=== PATIENT | female | born 1975 | race Caucasian/White ===

== ENCOUNTER 2017-06-30 20:27 | Emergency (ER) | payer BC ==
[2017-06-30] MEDS ORDERED: Ondansetron 4 MG Tab.DIS PO ONE (21:31)
[2017-06-30] MEDS ORDERED: Meclizine 12.5 MG Tab PO ONE (21:31)
[2017-06-30] MEDS ORDERED: Diazepam 5 MG Tab PO ONE (21:32)
--- NOTE | 2017-06-30 21:50 | EDM.PDOC ---
ED HPI GENERAL MEDICAL PROBLEM - General Chief Complaint: Neurological Problem Stated Complaint: VOMITING/DIZZY Time Seen by Provider: 06/30/17 20:38 Source of Information: Reports: Patient History Limitations: Reports: No Limitations - History of Present Illness INITIAL COMMENTS - FREE TEXT/NARRATIVE: 41 y/o F with dizziness. Acute onset while she was baking pies this evening. She felt lightheaded, dizzy with room spinning sensation, and nauseated. She thought it was from the heat in the kitchen. She finished what she was doing then took a cool bath. This made it worse - states the sensation or sight of the water moving made her more nauseated. She had several episodes of vomiting at home. Now still feels somewhat dizzy and nauseated. No clear provoking factor. Had recent upper respiratory infection and is currently on amoxacillin for otitis media. No fever. No headache. No head injury. No focal weakness or other neurological complaint. No tinnitus. No hx similar symptoms previously. Lower Back Pain Score (Numeric/FACES): 7 - Related Data Allergies Allergy/AdvReac Type Severity Reaction Status Date / Time No Known Allergies Allergy Verified 04/06/14 09:04 Home Meds: Home Meds Amoxicillin/Potassium Clav [Amox-Clav 875-125 mg Tablet] 1 tab PO Q12H 06/30/17 [History] Diazepam [Valium] 5 mg PO BID PRN #12 tablet 06/30/17 [Rx] Meclizine [Antivert] 25 mg PO Q6H PRN #28 tablet 06/30/17 [Rx] Omeprazole 20 mg PO DAILY 06/30/17 [History] Ondansetron [Zofran ODT] 4 mg PO Q4H PRN #24 tab.dis 06/30/17 [Rx] Past Medical History HEENT History: Reports: Other (See Below) Other HEENT History: bilateral ear infection and is on antibiotics now Gastrointestinal History: Reports: GERD, Hiatal Hernia - Past Surgical History HEENT Surgical History: Reports: Oral Surgery, Tonsillectomy GI Surgical History: Reports: Cholecystectomy Female Surgical History: Reports: Section, Tubal Ligation Other Female Surgeries/Procedures: x 3 Social & Family History - Tobacco Use Smoking Status *Q: Never Smoker Years of Tobacco use: 10 Used Tobacco, but Quit: No Second Hand Smoke Exposure: No - Caffeine Use Caffeine Use: Reports: Soda, Tea - Alcohol Use Days Per Week of Alcohol Use: 2 Number of Drinks Per Day: 2 Total Drinks Per Week: 4 - Recreational Drug Use Recreational Drug Use: No Drug Use in Last 12 Months: No ED ROS GENERAL - Review of Systems Review Of Systems: See Below Constitutional: Reports: Malaise. Denies: Fever HEENT: Reports: Ear Pain, Vertigo Respiratory: Denies: Cough Cardiovascular: Reports: Lightheadedness. Denies: Syncope Endocrine: Reports: No Symptoms GI/Abdominal: Reports: Nausea, Vomiting : Reports: No Symptoms Musculoskeletal: Reports: No Symptoms Skin: Reports: No Symptoms Neurological: Reports: Dizziness ED EXAM, NEURO - Physical Exam Exam: See Below Exam Limited By: No Limitations General Appearance: Alert, Moderate Distress Eye Exam: Bilateral Eye: EOMI, Nystagmus (horizontal, present with left gaze), PERRL Ears: Normal External Exam, Other (L TM is erythematous. R TM normal. ) Throat/Mouth: Normal Inspection, Normal Oropharynx, Normal Voice, No Airway Compromise Head Exam: Atraumatic, Normocephalic Neck: Normal Inspection, Supple Respiratory/Chest: No Respiratory Distress, Lungs Clear, Normal Breath Sounds Cardiovascular: Normal Peripheral Pulses, Regular Rate, Rhythm, No Murmur GI/Abdominal: Soft, Non-Tender, No Distention. No: Rebound Neurological: Alert, Normal Mood/Affect, Normal Dorsiflexion, CN II-XII Intact, Normal Plantar Flexion, No Motor/Sensory Deficits, Oriented x 3 Back Exam: Normal Inspection Extremities: Normal Inspection Psychiatric: Normal Affect, Normal Mood Skin Exam: Warm, Dry, Intact, Normal Color, No Rash Course - Vital Signs Last Recorded V/S: Last Vital Signs Temp 35.8 C 06/30/17 20:39 Pulse 85 06/30/17 20:39 Resp 20 06/30/17 20:39 BP 129/88 06/30/17 20:39 Pulse Ox 100 06/30/17 20:39 - Orders/Labs/Meds Meds: Medications Discontinued Medications Generic Name Dose Route Start Last Admin Trade Name Freq PRN Reason Stop Dose Admin Diazepam 5 mg 06/30/17 21:32 06/30/17 21:42 Valium. PO 06/30/17 21:33 5 mg ONETIME ONE Administration Meclizine HCl 25 mg 06/30/17 21:31 06/30/17 21:41 Antivert PO 06/30/17 21:32 25 mg ONETIME ONE Administration Ondansetron HCl 8 mg 06/30/17 21:31 06/30/17 21:41 Zofran Odt PO 06/30/17 21:32 8 mg ONETIME ONE Administration - Re-Assessments/Exams Free Text/Narrative Re-Assessment/Exam: 06/30/17 21:49 Suspect acute labyrinthitis given recent URI and current OM. Given zofran/ meclizine/diazepam in the ED. Will reeval after meds. 06/30/17 22:23 Feeling much better after meds. Will discharge with rx. for zofran/meclizine/ diazepam. PCP f/u, return precautions. Departure - Departure Time of Disposition: 22:23 Disposition: Home, Self-Care 01 Clinical Impression: Vertigo - Discharge Information Prescriptions: Diazepam [Valium] 5 mg PO BID PRN #12 tablet PRN Reason: severe dizziness Meclizine [Antivert] 25 mg PO Q6H PRN #28 tablet PRN Reason: Dizziness Ondansetron [Zofran ODT] 4 mg PO Q4H PRN #24 tab.dis PRN Reason: Nausea Referrals: Sharmila Grijalva PA [Primary Care Provider] - Forms: ED Department Discharge Additional Instructions: 1. Take ondansetron as needed for nausea 2. Take meclizine as needed for dizziness 3. Take diazepam as needed for severe nausea 4. Return to the ED if worse 5. Otherwise follow up with your primary doctor as needed
== END 2017-06-30 22:28 | disposition home or self-care (01) ==
LOC: JD.ED 20:27
DX: R42 Dizziness and giddiness (principal); K21.9 Gastro-esophageal reflux disease without esophagitis
CPT/HCPCS: 99284; A9270; 99283

== ENCOUNTER 2018-02-12 06:35 | Inpatient (IN) | payer BC ==
[~2018-02-12 06:35] MED LIST: Lactated Ringers 1,000 ML IV SCH; Lidocaine 1%/Sod Bicarbonate in NS 8.4% 1 ML Syringe IDERM PRN; Sodium Chloride 0.9% 10 ML Syringe FLUSH PRN
[2018-02-12] MEDS ORDERED: Dexamethasone 4 MG/ML 5 ML MDV ONE (06:55)
[2018-02-12] MEDS ORDERED: Ketorolac 30 MG/ML SDV ONE (06:55)
[2018-02-12] MEDS ORDERED: HYDROmorphone 0.5 MG/0.5 ML Syringe ONE ×3 (06:55→08:49)
[2018-02-12] MEDS ORDERED: Lactated Ringers 1,000 ML ONE ×2 (06:55→10:55)
[2018-02-12] MEDS ORDERED: Ondansetron 4 MG/2 ML SDV ONE (06:55)
[2018-02-12] MEDS ORDERED: Rocuronium 50 MG/5 ML Vial ONE (06:55)
[2018-02-12] MEDS ORDERED: fentaNYL 250 MCG/5 ML SDV ONE (06:56)
[2018-02-12] MEDS ORDERED: Propofol 200 MG/20 ML SDV ONE (06:56)
[2018-02-12] MEDS ORDERED: Midazolam 1 MG/ML 2 ML SDV ONE (06:56)
[2018-02-12] MEDS ORDERED: Bupivacaine 0.5% 30 ML SDV ONE (07:13)
[2018-02-12] MEDS ORDERED: Sodium Chloride 0.9% 50 ML SDV ONE (07:13)
[2018-02-12] MEDS ORDERED: Lidocaine 1% with EPINEPHrine 1:100,000 20 ML MDV ONE (07:13)
--- NOTE | 2018-02-12 07:15 | PCM.PREANE ---
Preanesthetic Assessment - Anesthesia/Transfusion/Family Hx Anesthesia History: Prior Anesthesia Without Reaction Transfusion History: Prior Transfusion Without Reaction - Review of Systems General: No Symptoms Pulmonary: No Symptoms Cardiovascular: No Symptoms Gastrointestinal: Other (hiatal hernia, GERD, takes daily med) Neurological: No Symptoms Other: Reports: None - Physical Assessment NPO Status Date: 02/11/18 NPO Status Time: 21:00 Pulse: 83 O2 Sat by Pulse Oximetry: 97 Respiratory Rate: 16 Blood Pressure: 121/77 Weight: 72.5 kg ASA Class: 2 Mental Status: Alert & Oriented x3 Airway Class: Mallampati = 3 Dentition: Reports: Normal Dentition Thyro-Mental Finger Breadths: 3 Mouth Opening Finger Breadths: 3 ROM/Head Extension: Full Lungs: Clear to Auscultation, Normal Respiratory Effort Cardiovascular: Regular Rate - Allergies Allergies/Adverse Reactions: Allergies Allergy/AdvReac Type Severity Reaction Status Date / Time No Known Allergies Allergy Verified 02/11/18 13:16 - Blood Blood Available: No Product(s) Available: None - Anesthesia Plan Pre-Op Medication Ordered: None - Acknowledgements Anesthesia Type Planned: General Anesthesia Pt an Appropriate Candidate for the Planned Anesthesia: Yes Alternatives and Risks of Anesthesia Discussed w Pt/Guardian: Yes Pt/Guardian Understands and Agrees with Anesthesia Plan: Yes PreAnesthesia Questionnaire HEENT History: Reports: Allergic Rhinitis, Otitis Media, Other (See Below) Other HEENT History: sore throat, allergic conjunctivits, wears glasses, contacts Cardiovascular History: Reports: None Respiratory History: Reports: None Gastrointestinal History: Reports: GERD, Hiatal Hernia 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: , Other (See Below) Other OB/BYN History: breast nodule, menorrhagia, dysmenorrhea, cystocele Musculoskeletal History: Reports: Other (See Below) Other Musculoskeletal History: right ankle arthrodesis Neurological History: Reports: None Psychiatric History: Reports: None Endocrine/Metabolic History: Reports: None Hematologic History: Reports: None Immunologic History: Reports: None Oncologic (Cancer) History: Reports: None Dermatologic History: Reports: None - Past Surgical History Head Surgeries/Procedures: Reports: None HEENT Surgical History: Reports: Adenoidectomy, Oral Surgery, Tonsillectomy Cardiovascular Surgical History: Reports: None GI Surgical History: Reports: Cholecystectomy, EGD Female Surgical History: Reports: Section, Tubal Ligation Other Female Surgeries/Procedures: x 3 Endocrine Surgical History: Reports: None Neurological Surgical History: Reports: None Musculoskeletal Surgical History: Reports: None Oncologic Surgical History: Reports: None Dermatological Surgical History: Reports: None - SUBSTANCE USE Smoking Status *Q: Former Smoker Recreational Drug Use History: No - HOME MEDS Home Medications: Home Meds Omeprazole 20 mg PO DAILY 06/30/17 [History] - CURRENT (IN HOUSE) MEDS Current Meds: Current Medications Lactated Ringer's (Ringers, Lactated) 1,000 mls @ 125 mls/hr IV ASDIRECTED MELVI Stop: 02/12/18 23:00 Lidocaine/Sodium Bicarbonate (Buffered Lidocaine 1% In Ns 8.4%) 0.25 ml IDERM ONETIME PRN PRN Reason: Prior to IV Start Stop: 02/12/18 18:00 Sodium Chloride (Saline Flush) 10 ml FLUSH ASDIRECTED PRN PRN Reason: Keep Vein Open Stop: 02/12/18 18:00 Discontinued Medications Dexamethasone (Dexamethasone) Confirm Administered Dose 20 mg .ROUTE .STK-MED ONE Stop: 02/12/18 06:56 Fentanyl (Sublimaze) Confirm Administered Dose 250 mcg .ROUTE .STK-MED ONE Stop: 02/12/18 06:57 Hydromorphone HCl (Dilaudid) Confirm Administered Dose 0.5 mg .ROUTE .STK-MED ONE Stop: 02/12/18 06:56 Lactated Ringer's (Ringers, Lactated) Confirm Administered Dose 1,000 mls @ as directed .ROUTE .STK-MED ONE Stop: 02/12/18 06:56 Ketorolac Tromethamine (Toradol) Confirm Administered Dose 30 mg .ROUTE .STK- MED ONE Stop: 02/12/18 06:56 Midazolam HCl (Versed 1 Mg/Ml) Confirm Administered Dose 2 mg .ROUTE .STK-MED ONE Stop: 02/12/18 06:57 Ondansetron HCl (Zofran) Confirm Administered Dose 4 mg .ROUTE .STK-MED ONE Stop: 02/12/18 06:56 Propofol (Diprivan 20 Ml) Confirm Administered Dose 200 mg .ROUTE .STK-MED ONE Stop: 02/12/18 06:57 Rocuronium Harvey (Zemuron) Confirm Administered Dose 50 mg .ROUTE .STK-MED ONE Stop: 02/12/18 06:56
[2018-02-12] MEDS ORDERED: Neostigmine Methylsulfate 1 MG/ML 5 ML Syringe ONE (08:46)
[2018-02-12] MEDS ORDERED: ceFAZolin 1 GM Vial ONE (08:46)
[2018-02-12] MEDS ORDERED: Ketamine 500 mg/10 ML MDV ONE (08:49)
[2018-02-12] MEDS ORDERED: Metoclopramide 10 MG/2 ML SDV IVPUSH PRN (10:51)
[2018-02-12] MEDS ORDERED: Ondansetron 4 MG/2 ML SDV IVPUSH PRN ×2 (10:51→12:16)
[2018-02-12] MEDS ORDERED: HYDROmorphone 0.5 MG/0.5 ML Syringe IVPUSH PRN (10:51)
[2018-02-12] MEDS ORDERED: fentaNYL 100 MCG/2 ML SDV IVPUSH PRN (10:51)
--- NOTE | 2018-02-12 10:51 | PCM.POSTAN ---
POST ANESTHESIA ASSESSMENT - MENTAL STATUS Mental Status: Alert, Oriented - VITAL SIGNS Pulse Rate: 115 SaO2: 96 Resp Rate: 12 Blood Pressure: 139/79 Temperature: 36.8 C - RESPIRATORY Respiratory Status: Respiratory Rate WNL, Airway Patent, O2 Saturation Stable, Supplemental Oxygen - CARDIOVASCULAR CV Status: Pulse Rate WNL, Blood Pressure Stable - GASTROINTESTINAL GI Status: No Symptoms - PAIN Pain Score: 0 - POST OP HYDRATION Hydration Status: Adequate & Stable
--- NOTE | 2018-02-12 11:07 | PCM.OPNOTE ---
- General Post-Op/Procedure Note Date of Surgery/Procedure: 02/12/18 Operative Procedure(s): Diagnostic laparoscopy, total abdominal hysterectomy with bilateral salpingectomy, anterior repair and mid urethral sling Findings: Significant abdominal adhesions of omentum to anterior peritoneum on laparoscopy , overall normal-appearing uterus with normal-appearing bilateral ovaries, bilateral fallopian tube segments normal in appearance with bilateral surgically resected portions near the ampulla portion of the fallopian tube, normal-appearing cervix, grade 2 cystocele and minimal rectocele Pre Op Diagnosis: Menorrhagia with pelvic pain, vaginal pressure and stress urinary incontinence Post-Op Diagnosis: Same with significant abdominal adhesions Anesthesia Technique: General ET Tube Primary Surgeon: Jacob Kirk Anesthesia Provider: Kaci Lake Parachute Folder: Antwan Bullard Parachute Folder: Pasha Vásquez Reason Parachute Folder Was Necessary: Patient safety and reduction of morbidity and mortality of surgical procedure. Role of Parachute Folder: Retraction and assist with visualization and performing portions of the surgical case on assistants side of the abdomen. Pathology: Cervix, uterus, bilateral fallopian tubes Fluid Replacement, Intraop: 2,500 Output, Urine Amount: 200 EBL in mLs: 75 Complications: Significant abdominal adhesions necessitating conversion to total abdominal hysterectomy Condition: Good Free Text/Narrative:: Procedure in detail: The patient was seen in the pre-operative holding area and consents were reviewed. The patient was taken back to OR #2 and was placed in dorsal supine position. The patient was given general anesthesia with endotracheal tube that was placed without difficulty. The patient was then prepped and draped in a normal sterile fashion. The previous umbilical incision was injected with 0.5% Marcaine and a stab incision was made with a scalpel. Veress needle was inserted and gas was turned on and opening pressure was noted to be 3 mmHg. The abdomen was insufflated until a pneumoperitoneum pressure was reached a pressure of 15 mmHg. A trocar was then inserted through the incision under direct visualization into the abdomen and the abdomen wasn't explored. There is noted to be significant amount of adhesions from the omentum to the anterior peritoneum and decision was made at this time that the case would not be able to be performed laparoscopically and would need to be converted to an abdominal hysterectomy. The skin was infiltrated approximately 2 fingerbreadths above the pubic symphysis using 0.5% marcaine for local anesthesia through her previous section scar. A Pfannenstiel incision was made using a scalpel. The incision was then taken down to the fascia with Bovie cautery. The fascia was then incised in the midline using Bovie cautery and extended bilaterally with Bovie cautery. Estrellita clamps were used to grasp the inferior edge of the fascial incision and the rectus muscles dissected off bluntly and sharply in the midline. The inferior aspect of the fascia was then grasped with Estrellita clamps and similarly the rectus muscles were dissected off of the fascia bluntly and sharply. The rectus muscles were then in the midline and the peritoneum was entered sharply using Metzenbaum scissors. The Kendall retractor was then used to retract away the muscles and abdominal wall. The intestines were then packed away gently with rolled moist laps. The uterus was then visualized and was noted to be overall normal in appearance with normal- appearing bilateral ovaries and bilateral fallopian tubes with middle portion and surgically resected but otherwise normal in appearance. The fallopian on the left side was grasped using Ira clamps and excised using Enseal vessel sealing device. This was repeated on the patient's right side. The round ligament and utero-ovarian ligament were then clamped, cauterized and ligated using the Enseal vessel sealing device on the patient's left side. This was repeated on the patient's right side. The bladder flap was then taken down using sharp and blunt dissection. The remainder of the broad ligament was then serially clamped, cauterized and ligated using the Enseal vessel sealing device. The uterine vessels were then clamped, cut and suture ligated bilaterally sequentially using 0-Monocryl suture. The broad ligament was then clamped, cut and ligated using Enseal vessel sealing device on either side of the lower uterine segment and down to the cervix. The vaginal cuff edges were then grasped and the curved Zeppelin clamps were used to come across the vagina just past the cervix. The uterus and cervix were then cut away and handed off as specimen. The vaginal cuff was then closed using figure- of-eight sutures of 0-Monocryl. All the pedicles were inspected at this time and were found to be hemostatic. The pelvis was then irrigated with copious amounts of saline. All of the laps were removed at this time. The fascia was then closed with 0 PDS suture in a running fashion. The subcutaneous was re-approximated using 2-0 chromic. The skin incision was then closed with 4-0 Monocryl suture. Attention was then turned to the pelvis for the anterior and posterior repair. There was noted to be a grade 2 cystocele and minimal rectocele. The vaginal mucosa overlying the bladder was grasped using Allis clamps and was injected using 0.25% lidocaine with epinephrine. The mucosa was then excised in a triangular fashion using a scalpel and Alves scissors. The lateral sides of the bladder the mucosa was undermined using Metzenbaum scissors. The vesicovaginal fascia was then reapproximated using 0-Monocryl suture with box sutures. The edges of the vaginal mucosa was trimmed further using Metzenbaum sutures. The incision was closed using 3-0 Monocryl sutures in a running locked fashion. The procedure was complete at this time. The patient was then extubated and taken out of the operating room in stable condition. Sponge, lap and needle counts were correct at the end of the case. The case was complicated by conversion to total abdominal hysterectomy.
[2018-02-12] MEDS ORDERED: diphenhydrAMINE 50 MG/ML SDV IVPUSH PRN (11:34)
[2018-02-12] MEDS ORDERED: diphenhydrAMINE 50 MG/ML SDV ONE (11:39)
[2018-02-12] MEDS ORDERED: Acetaminophen/oxyCODONE 325-5 MG Tab PO PRN ×2 (12:16)
[2018-02-12] MEDS ORDERED: Morphine 2 MG/ML Syringe IVPUSH PRN (12:16)
[2018-02-12] MEDS ORDERED: Magnesium Hydroxide 400 MG/5 ML Susp 30 ML Cup PO PRN (12:16)
[2018-02-12] MEDS ORDERED: Haloperidol Lactate 5 MG/ML SDV IVPUSH ONE (14:48)
[2018-02-12] MEDS ORDERED: Scopolamine 1.5 MG Transdermal Patch TRDERM PRN (14:51)
[2018-02-12] MEDS ORDERED: Haloperidol Lactate 5 MG/ML SDV IVPUSH PRN (14:51)
[2018-02-12] MEDS ORDERED: Ketorolac 30 MG/ML SDV IVPUSH PRN (16:30)
[2018-02-12] MEDS ORDERED: Aluminum Hydroxide/Magnesium Hydroxide/Simethicone Susp 30 ML Cup PO PRN (18:31)
[2018-02-12] MEDS ORDERED: Promethazine 12.5 MG in Sodium Chloride 0.9% 50 ML IV ONE (21:09)
[2018-02-13] MEDS: Docusate Sodium 100 MG Cap PO SCH ×2 (00:58→11:12)
[2018-02-13] MEDS ORDERED: Ibuprofen 600 MG Tab PO PRN (10:30)
--- NOTE | 2018-02-13 15:44 | PCM48HPAN ---
Post Anesthesia Note - EVALUATION WITHIN 48HRS OF ANESTHETIC Vital Signs in Normal Range: Yes Patient Participated in Evaluation: Yes Respiratory Function Stable: Yes Airway Patent: Yes Cardiovascular Function Stable: Yes Hydration Status Stable: Yes Pain Control Satisfactory: Yes Nausea and Vomiting Control Satisfactory: No (Orders given to provide additonal relief from symptoms of nausea/vomiting) Mental Status Recovered: Yes
== END 2018-02-13 11:52 | disposition home or self-care (01) | DRG 513 ==
LOC: JD.SDS 06:35 → JD.OB 10:43
PROVIDERS: ADMIT Obstetrics & Gynecology; ATTEND Obstetrics & Gynecology
PROC: 0UT70ZZ Resection of Bilateral Fallopian Tubes, Open Approach (ICD-10-PCS; principal; 2018-02-12)
PROC: 0UT20ZZ Resection of Bilateral Ovaries, Open Approach (ICD-10-PCS; principal; 2018-02-12)
PROC: 0DNW0ZZ Release Peritoneum, Open Approach (ICD-10-PCS; principal; 2018-02-12)
PROC: 0UT90ZZ Resection of Uterus, Open Approach (ICD-10-PCS; principal; 2018-02-12)
DX: N92.0 Excessive and frequent menstruation with regular cycle (principal); K66.0 Peritoneal adhesions (postprocedural) (postinfection); N39.3 Stress incontinence (female) (male); K21.9 Gastro-esophageal reflux disease without esophagitis; K44.9 Diaphragmatic hernia without obstruction or gangrene; Z87.442 Personal history of urinary calculi; Z98.1 Arthrodesis status; Z90.49 Acquired absence of other specified parts of digestive tract
CPT/HCPCS: 36415; 81003; 81025; 85027; 86850; 86900; 86901; A9270-GY; J0690; J1100; J1170; J1200; J1630; J1885; J2250; J2405; J2704; J2710; J2765; J3010; J7120

== ENCOUNTER 2021-10-01 00:11 | Emergency (ER) | payer BC ==
[2021-10-01] MEDS ORDERED: Benztropine 1 MG Tab PO STA (00:38)
[2021-10-01] MEDS ORDERED: Sodium Chloride 0.9% 1,000 ML IV ONE (00:38)
[2021-10-01] MEDS ORDERED: Ondansetron 4 MG/2 ML SDV IVPUSH ONE (00:38)
[2021-10-01] MEDS ORDERED: Haloperidol Lactate 5 MG/ML SDV IM ONE (00:38)
== END 2021-10-01 02:08 | disposition home or self-care (01) ==
LOC: JD.ED 00:11
DX: G43.909 Migraine, unspecified, not intractable, without status migrainosus (principal); K21.9 Gastro-esophageal reflux disease without esophagitis; E66.9 Obesity, unspecified; Z68.32 Body mass index [BMI] 32.0-32.9, adult; Z79.899 Other long term (current) drug therapy; Z87.891 Personal history of nicotine dependence
CPT/HCPCS: 70450; 96372; 96374; 99284; A9270; J1630; J2405; J7030

== ENCOUNTER 2022-12-28 09:22 | Emergency (ER) | payer BC ==
[2022-12-28] MEDS ORDERED: HYDROmorphone 0.5 MG/0.5 ML Syringe IVPUSH ONE ×2 (10:00→13:18)
[2022-12-28] MEDS ORDERED: cefTRIAXone 2 GM in Sodium Chloride 0.9% 100 ML IV ONE (10:01)
[2022-12-28] MEDS ORDERED: Iopamidol 612 MG/ML 100 ML Bottle IVPUSH ONE (10:21)
[2022-12-28 10:30] LABS: BASOPHILS ABSOLUTE AUTO 0.04 K/mm3 (0.01-0.08); BASOPHILS PERCENT AUTO 0.3 % (0.1-1.2); EOSINOPHILS ABSOLUTE AUTO 0.24 K/mm3 (0.04-0.36); HEMATOCRIT 41.4 % (34.1-44.9); HEMOGLOBIN 13.7 gm/dl (11.2-15.7); IMMATURE GRAN ABSOLUTE AUTO 0.02 K/mm3 (0.00-0.10); IMMATURE GRAN PERCENT AUTO 0.2 % (<=1.0); LYMPHOCYTES ABSOLUTE AUTO 2.43 K/mm3 (1.18-3.74); LYMPHOCYTES PERCENT AUTO 19.8 % (19.3-51.7); MEAN CORPUSCULAR HEMOGLOBIN 29.5 pg (25.6-32.2); MEAN CORPUSCULAR HGB CONC 33.1 g/dl (32.2-35.5); MEAN CORPUSCULAR VOLUME 89.2 fl (79.4-94.8); MEAN PLATELET VOLUME 10.3 fl (9.4-12.3); MONOCYTES ABSOLUTE AUTO 1.76 K/mm3 (0.24-0.36); MONOCYTES PERCENT AUTO 14.3 % (4.7-12.5); NEUTROPHILS ABSOLUTE AUTO 7.79 K/mm3 (1.56-6.13); NEUTROPHILS PERCENT AUTO 63.4 % (34.0-71.1); PLATELET COUNT,PLT 270 K/mm3 (182-369); RED BLOOD CELL COUNT 4.64 M/mm3 (3.98-5.22); WHITE BLOOD CELL COUNT,WBC 12.28 K/mm3 (3.98-10.04)
[2022-12-28 10:52] LABS: A/G RATIO 0.9 (1-2); ALBUMIN 3.8 g/dl (3.4-5.0); ANION GAP 13.1 (5-15); BILIRUBIN TOTAL 0.6 mg/dL (0.2-1.0); C-REACTIVE PROTEIN 3.3 mg/dL (<1.0); CALCIUM 9.2 mg/dL (8.5-10.1); CREATININE 0.8 mg/dL (0.55-1.02); EST CRCL DRUG DOSING (CG) 64.89 mL/min; POTASSIUM,K 4.1 mEq/L (3.5-5.1)
[2022-12-28] MEDS: Sodium Chloride 0.9% 10 ML Syringe FLUSH PRN ×2 (11:18→11:26)
== END 2022-12-28 13:39 | disposition home or self-care (01) ==
LOC: JD.ED 09:22
DX: L03.221 Cellulitis of neck (principal); K21.9 Gastro-esophageal reflux disease without esophagitis; E66.9 Obesity, unspecified; Z68.33 Body mass index [BMI] 33.0-33.9, adult; Z86.16 Personal history of COVID-19; Z79.899 Other long term (current) drug therapy
CPT/HCPCS: 36415; 70491; 80053; 83605; 85025; 86140; 87040; 96365; 96375; 96376; 99284; J0696; J1170; J3490; Q9967

== ENCOUNTER 2024-04-25 05:55 | Day surgery (SDC) | payer BC ==
[2024-04-25] MEDS: Lactated Ringers 1,000 ML IV SCH (06:10)
[2024-04-25] MEDS ORDERED: Propofol 200 MG/20 ML SDV ONE (06:25)
[2024-04-25] MEDS ORDERED: Midazolam 1 MG/ML 2 ML SDV ONE (06:27)
[2024-04-25] MEDS ORDERED: fentaNYL 100 MCG/2 ML SDV ONE (06:27)
[2024-04-25] MEDS ORDERED: Ondansetron 4 MG/2 ML SDV ONE (06:30)
[2024-04-25] MEDS ORDERED: Sodium Chloride 0.9% 10 ML Syringe FLUSH SCH (07:00)
[2024-04-25] MEDS ORDERED: Sodium Chloride 0.9% 10 ML Syringe FLUSH PRN (07:00)
[2024-04-25] MEDS: Bupivacaine 0.25% 10 ML SDV ONE ×2 (07:05→07:12)
[2024-04-25] MEDS: Lidocaine 1% 10 ML MDV ONE (07:05)
[2024-04-25] MEDS: Triamcinolone Acetonide 40 MG/ML 1 ML SDV ONE (07:12)
== END 2024-04-25 09:25 | disposition home or self-care (01) ==
LOC: JD.SDS 05:55
PROVIDERS: ATTEND Orthopaedic Surgery
DX: G56.13 Other lesions of median nerve, bilateral upper limbs (principal); F41.9 Anxiety disorder, unspecified; E04.9 Nontoxic goiter, unspecified; K21.9 Gastro-esophageal reflux disease without esophagitis; Z87.891 Personal history of nicotine dependence
CPT/HCPCS: 20526; 64721; J0665; J2250; J2405; J2704; J3010; J3301; J7120; 01810; J3490

== ENCOUNTER 2024-05-03 19:03 | Emergency (ER) | payer BC ==
[2024-05-03] MEDS ORDERED: Sodium Chloride 0.9% 10 ML Syringe FLUSH PRN (19:26)
[2024-05-03] MEDS: methylPREDNISolone Sodium Succinate 125 MG/2 ML SDV IVPUSH ONE (19:33)
[2024-05-03] MEDS: Famotidine 20 MG/2 ML SDV IVPUSH ONE (19:34)
[2024-05-03] MEDS: diphenhydrAMINE 50 MG/ML SDV IVPUSH ONE (19:36)
== END 2024-05-03 20:52 | disposition home or self-care (01) ==
LOC: JD.ED 19:03
DX: T78.40XA Allergy, unspecified, initial encounter (principal); K21.9 Gastro-esophageal reflux disease without esophagitis; E66.9 Obesity, unspecified; Z86.16 Personal history of COVID-19; Z79.899 Other long term (current) drug therapy
CPT/HCPCS: 96374; 96375; 99283; J1200; J2919; J3490

== ENCOUNTER 2024-06-08 07:35 | Day surgery (SDC) | payer BC ==
[~2024-06-08 07:35] MED LIST changes: -Lactated Ringers 1,000 ML IV SCH; +Lidocaine 1% 5 ML VIAL ONE; -Lidocaine 1%/Sod Bicarbonate in NS 8.4% 1 ML Syringe IDERM PRN; +Midazolam 1 MG/ML 2 ML SDV ONE; +Propofol 200 MG/20 ML SDV ONE; +Sodium Chloride 0.9% 10 ML Syringe FLUSH SCH; +fentaNYL 100 MCG/2 ML SDV ONE
[2024-06-08] MEDS: Lactated Ringers 1,000 ML IV SCH (07:55)
[2024-06-08] MEDS ORDERED: Ondansetron 4 MG/2 ML SDV ONE (08:44)
[2024-06-08] MEDS ORDERED: Dexamethasone 4 MG/ML 5 ML MDV ONE (08:45)
[2024-06-08] MEDS: Bupivacaine 0.25% 10 ML SDV ONE (10:25)
[2024-06-08] MEDS: Lidocaine 1% 10 ML MDV ONE (10:25)
[2024-06-08] MEDS ORDERED: Ketorolac 30 MG/ML SDV ONE (10:31)
[2024-06-08] MEDS ORDERED: Acetaminophen/HYDROcodone 325-5 MG Tab PO PRN (11:16)
== END 2024-06-08 11:40 | disposition home or self-care (01) ==
LOC: JD.SDS 07:35
PROVIDERS: ATTEND Orthopaedic Surgery
DX: G56.12 Other lesions of median nerve, left upper limb (principal); K21.9 Gastro-esophageal reflux disease without esophagitis; Z87.891 Personal history of nicotine dependence; Z79.899 Other long term (current) drug therapy
CPT/HCPCS: 64721; J0665; J1100; J1885; J2250; J2405; J2704; J3010; J7120; 01810; J3490